=== PATIENT | female | born 1960 | race Caucasian/White ===

== ENCOUNTER 2018-12-11 12:17 | Day surgery (SDC) | payer BC ==
[~2018-12-11] VITALS: Ht 160 cm; Wt 60.9 kg
[2018-12-11 14:40] VITALS: Ht 160 cm; Wt 60.9 kg
[2018-12-11 14:44] VITALS: BP 123/60; PULSE 64; RESP 19
[2018-12-11] MEDS ORDERED: PROPOFOL 40 ML ONE (15:47)
[2018-12-11] MEDS ORDERED: LIDOCAINE 2% (SDV) 5 ML INJ ONE (15:47)
--- NOTE | 2018-12-11 15:57 | PREAC ---
Date/Time of Note Date/Time of Note DATE: 12/11/18 TIME: 15:56 Anesthesia Eval and Record Evaluation Time Pre-Procedure Interview DATE: 12/11/18 TIME: 15:56 Age 58 Sex female NPO: 8 hrs Preoperative diagnosis colon screening Planned procedure colonoscopy Past Medical History Past Medical History: None Surgery & Anesthesia Issues No known issue Meds Anticoagulation: No Beta Tomas within 24 hr: No Reason Beta Tomas not given: Pt. not on B-Tomas Meds reviewed: Yes Allergies Coded Allergies: No Known Allergy (Unverified , 12/11/18) Allergies Reviewed: Yes Labs/Studies Labs Reviewed: Reviewed by anesthesiologist test: Negative Studies: ECG Pre-procedure Exam Last vitals Vital Signs Date Temp Pulse Resp B/P (MAP) Pulse Ox O2 O2 Flow FiO2 Time Delivery Rate 12/11/18 97.9 64 19 123/60 100 Room Air 14:44 (81) Airway: Adequate mouth opening, Adequate thyromental dist Mallampati: Mallampati II Teeth: Normal Lung: Normal Heart: Normal ASA Physical Status ASA physical status: 2 Emergency: None Planned Anesthetic General/MAC: MAC Pre-operative Attestations Prior to commencing anesthesia and surgery, the patient was re-evaluated, there was verification of: *The patient's identity *The results of appropriate recent lab work and preoperative vital signs *The above evaluation not changing prior to induction *Anesthetic plan, risk benefits, alternative and complications discussed with p atient/family; questions answered; patient/family understands, accepts and wishes to proceed. SYED RICHARDS MD Dec 11, 2018 15:57
[2018-12-11 16:05] VITALS: BP 95/56; PULSE 67; RESP 18
--- NOTE | 2018-12-11 16:08 | PAC ---
Date/Time of Note Date/Time of Note DATE: 12/11/18 TIME: 16:07 Post-Anesthesia Notes Post-Anesthesia Note Last documented vital signs Vital Signs Date Temp Pulse Resp B/P (MAP) Pulse Ox O2 O2 Flow FiO2 Time Delivery Rate 12/11/18 97.9 64 19 123/60 100 Room Air 14:44 (81) Activity: WNL Respiratory function: WNL Cardiovascular function: WNL Mental status: Baseline Pain reasonably controlled: Yes Hydration appropriate: Yes Nausea/Vomiting absent: Yes Comments BP:120/56, pulse:72, spo2:100%, T:98,8 SYED RICHARDS MD Dec 11, 2018 16:08
[2018-12-11 16:25] VITALS: BP 100/60; PULSE 60; RESP 18
[2018-12-11 16:38] VITALS: BP 100/64; PULSE 64; RESP 20
== END 2018-12-11 18:23 | disposition home or self-care (01) ==
LOC: GIL 12:17
PROVIDERS: ATTEND Internal Medicine Gastroenterology
DX: Z12.11 Encounter for screening for malignant neoplasm of colon (principal); D12.2 Benign neoplasm of ascending colon; D17.5 Benign lipomatous neoplasm of intra-abdominal organs; K64.8 Other hemorrhoids
CPT/HCPCS: 45380; 45385; 88305; Z7610